=== PATIENT | male | born 1975 | race Caucasian/White ===

== ENCOUNTER 2018-03-13 22:48 | Inpatient (IN) | payer MEDICAID ==
[2018-03-13 23:37] LABS: % EOSINOPHILS 1.3 % (0.0-5.0); % LYMPHOCYTES 27.7 % (20.0-50.0); EOSINOPHILE ABSOLUTE 0.2 Th/cmm (0.1-0.4); HEMATOCRIT 48.2 % (41.0-60); HEMOGLOBIN 16.3 gm/dL (12-16); MEAN CELL VOLUME 84.7 fl (80-99); MEAN CORPUSCULAR HEMOGLOBIN 28.7 pg (26.0-30.0); MEAN CORPUSCULAR HGB CONC 33.9 pg (28.0-36.0); MEAN PLATELET VOLUME 8.7 fl; MONOCYTE ABSOLUTE 1.2 Th/cmm (0.3-1.0); NEUTROPHILE ABSOLUTE 9.2 Th/cmm (1.8-8.0); PLATELET COUNT 300 Th/cmm (150-400); RED BLOOD COUNT 5.69 Mil/cmm (4.30-5.70); RED CELL DISTRIBUTION WIDTH 13.2 % (11.5-20.0); WHITE BLOOD COUNT 14.6 Th/cmm (4.8-10.8)
[2018-03-13 23:48] LABS: INR 0.91 (0.5-1.4); PROTHROMBIN TIME (TEST) 9.5 SECONDS (9.5-11.5)
[2018-03-13 23:52] LABS: ALBUMIN 3.7 gm/dL (4.2-5.5); ALKALINE PHOSPHATASE 195 U/L (34-104); BILIRUBIN,TOTAL 0.4 mg/dL (0.3-1.0); BUN - UREA NITROGEN 12 mg/dL (7-25); CALCIUM SERUM 9.3 mg/dL (8.6-10.3); CARBON DIOXIDE 25.8 mEq/L (21.0-31.0); CHLORIDE 104 mEq/L (98-107); CHOLESTEROL 132 mg/dL (<200); CREATININE - SERUM 0.7 mg/dL (0.7-1.3); CREATININE KINASE 128 U/L (30-223); GFR AFRICAN-AMERICAN > 60.0 ml/min (>90); GFR NON AFRICAN-AMERICAN > 60.0 ml/min; GLUCOSE 148 mg/dL (70-105); HDL -HIGH DENSITY LIPOPROTEIN 51 mg/dL (23-92); POTASSIUM SERUM 3.8 mEq/L (3.5-5.1); SGOT 51 U/L (13-39); SGPT/ALT 93 U/L (7-52); SODIUM SERUM 137 mEq/L (136-145); TOTAL PROTEIN,SERUM 7.3 gm/dL (6.0-8.3); TRIGLYCERIDES 91 mg/dL (<150)
[2018-03-14 00:09] LABS: DDIMER QUANT < 100 ng/mL (100-400)
--- NOTE | 2018-03-14 00:19 | ED Physician Chart ---
ED Chief Complaint/HPI - Patient Information Date Seen:: 03/13/18 Time Seen:: 23:00 Chief Complaint:: Dyspnea History of Present Illness:: onset x 3 days of dyspnea, fever, cough, and congestion; pt denies trauma, H/As , S/T, neck pain, C/P, Abd. Pain, A/N/V/D/C, chills, or urinary s/s Allergies:: Allergies Allergy/AdvReac Type Severity Reaction Status Date / Time No Known Allergies Allergy Verified 03/13/18 23:11 Vitals:: Vital Signs - 8 hr 03/13/18 03/14/18 23:00 00:15 Temp 97.8 F 98 F HR 90 88 RR 18 18 BP 144/90 140/86 O2 Sat % 96 97 Historian:: Patient, Friend Review:: Nurse's Note Reviewed ED Review of Systems - Review of Systems General/Constitutional: Fever, No chills, No weight loss, No weakness, No diaphoresis, No edema, No loss of appetite Skin: No skin lesions, No rash, No bruising Head: No headache, No light-headedness Eyes: No loss of vision, No pain, No diplopia ENT: No earache, Nasal drainage, No sore throat, No tinnitus Neck: No neck pain, No swelling, No thyromegaly, No stiffness, No mass noted Cardio Vascular: No chest pain, No palpitations, No PND, No orthopnea, No edema Pulmonary: SOB, Cough, No sputum, No wheezing GI: No nausea, No vomiting, No diarrhea, No pain, No melena, No hematochezia, No constipation, No hematemesis G/U: No dysuria, No frequency, No hematuria Musculoskeletal: No bone or joint pain, No back pain, No muscle pain Endocrine: No polyuria, No polydipsia Psychiatric: No prior psych history, No depression, No anxiety, No suicidal ideation, No homicidal ideation, No auditory hallucination, No visual hallucination Hematopoietic: No bruising, No lymphadenopathy Allergic/Immuno: No urticaria, No angioedema Neurological: No syncope, No focal symptoms, No weakness, No paresthesia, No headache, No seizure, No dizziness, No confusion, No vertigo ED Past Medical History - Past Medical History Obtainable: Yes Past Medical History: HTN, Dyslipidemia, Other (Hepatitis C) Family History: HTN Social History: Smoker, Alcohol, Illicit Drug Use, Single Surgical History: None Psychiatricy History: None Medication: Reviewed Family Medical History - Family Member Mother History Unknown: Yes ED Physical Exam - Physical Examination General/Constitutional: Awake, Well-developed, well-nourished, Alert, No distress, GCS 15, Non-toxic appearing, Ambulatory Head: Atraumatic Eyes: Lids, conjuctiva normal, PERRL, EOMI Skin: Nl inspection, No rash, No skin lesions, No ecchymosis, Well hydrated, No lymphadenopathy ENMT: External ears, nose nl, TM canals nl, Nasal exam nl, Lips, teeth, gums nl , Oropharynx nl, Tonsils nl Neck: Nontender, Full ROM w/o pain, No JVD, No nuchal rigidity, No bruit, No mass, No stridor Respiratory: Nl effort/Exclusion Other Respiratory comments:: Lungs: + Rales and Rhonchi Cardio Vascular: RRR, No murmur, gallop, rubs, NL S1 S2, Carotid/Femoral/Distal pulses equal bilaterally GI: No tenderness/rebounding/guarding, No organomegaly, No hernia, Normal BS's, Nondistended, No mass/bruits, No McBurney tenderness, Rectum exam nl Other GI comments:: no pulsatile masses : No CVA tenderness Extremities: No tenderness or effusion, Full ROM, normal strength in all extremities, No edema, Normal digits & nails Neuro/Psych: Alert/oriented, DTR's symmetric, Normal sensory exam, Normal motor strength, Judgement/insight normal, Mood normal, Normal gait, No focal deficits Misc: Normal back, No paraspinal tenderness ED Labs/Radiology/EKG Results - Lab Results Results: Laboratory Tests 03/13/18 03/13/18 03/13/18 23:25 23:25 23:25 WBC 14.6 H RBC 5.69 Hgb 16.3 Hct 48.2 MCV 84.7 MCH 28.7 MCHC Differential 33.9 RDW 13.2 Plt Count 300 MPV 8.7 Neutrophils % 63.0 Lymphocytes % 27.7 Monocytes % 8.0 Eosinophils % 1.3 Basophils % 0.0 PT 9.5 INR 0.91 D-Dimer < 100 L Sodium 137 Potassium 3.8 Chloride 104 Carbon Dioxide 25.8 Anion Gap 11.0 BUN 12 Creatinine 0.7 Est GFR ( Amer) > 60.0 Est GFR (Non-Af Amer) > 60.0 BUN/Creatinine Ratio 17.1 Glucose 148 H Calcium 9.3 Total Bilirubin 0.4 AST 51 H ALT 93 H Alkaline Phosphatase 195 H Creatine Kinase 128 Troponin I B-Natriuretic Peptide Total Protein 7.3 Albumin 3.7 L Globulin 3.6 Albumin/Globulin Ratio 1.0 Triglycerides 91 Cholesterol 132 LDL Cholesterol Direct 66 L HDL Cholesterol 51 03/13/18 03/13/18 23:25 23:25 WBC RBC Hgb Hct MCV MCH MCHC Differential RDW Plt Count MPV Neutrophils % Lymphocytes % Monocytes % Eosinophils % Basophils % PT INR D-Dimer Sodium Potassium Chloride Carbon Dioxide Anion Gap BUN Creatinine Est GFR ( Amer) Est GFR (Non-Af Amer) BUN/Creatinine Ratio Glucose Calcium Total Bilirubin AST ALT Alkaline Phosphatase Creatine Kinase Troponin I 0.01 B-Natriuretic Peptide 17.2 Total Protein Albumin Globulin Albumin/Globulin Ratio Triglycerides Cholesterol LDL Cholesterol Direct HDL Cholesterol Comments:: WBC: 14.6; Elevated LFTs - Radiology Results Comments:: CXR: + CHF; + Patchy RML Infiltrate; COPD - EKG Interpretations EKG Time:: 23:26 Rate & Rhythm: 88; NSR Comments:: non-specific st-t changes ED Septic Shock - . Is Septic Shock (SBP<90, OR Lactate>4 mmol\L) present?: No - <6hrs of presentation: Vital Signs: Vital Signs - 8 hr 03/13/18 03/14/18 23:00 00:15 Temp 97.8 F 98 F HR 90 88 RR 18 18 BP 144/90 140/86 O2 Sat % 96 97 ED Reassessment (Disposition) - Reassessment Reassessment Condition:: Improved - Diagnosis Diagnosis:: Dyspnea, Fever, Cough, Congestion; CHF; PNA; COPD; Sepsis - Aftercare/Follow up Instructions Aftercare/Follow-Up Instructions:: Counseled pt regarding lab results/diagnosis & need follow up, Counseled pt & family regarding lab results/diagnosis & need follow up - Patient Disposition Discharge/Transfer:: Acute Care w/in this hosp Accepting Physician:: Dr. Watson Time Called:: 0020 Time Responded:: 00:20 Admitted to:: Telemetry Spoke to:: Dr. Watson Admitting Medical Physician:: Dr. Watson Condition at Disposition:: Stable, Improved
[2018-03-14] MEDS ORDERED: Levofloxacin 500mg/100mL 500 MG/100 ML BAG IV ONE ×2 (00:28→00:33)
[2018-03-14] MEDS ORDERED: Azithromycin 500 MG in Sodium Chloride 0.9% 250 ML IV SCH (00:45)
[2018-03-14] MEDS ORDERED: cefTRIAXone 1 GM in Sodium Chloride 0.9% 50 ML IV SCH (00:45)
[2018-03-14 01:29] LABS: URINE MICROSCOPIC INDICATED? YES; URINE SOURCE MIDSTREAM
[2018-03-14 01:32] LABS: URINE BILIRUBIN NEGATIVE (NEGATIVE); URINE BLOOD NEGATIVE (NEGATIVE); URINE GLUCOSE (UA) NEGATIVE (NEGATIVE); URINE KETONE NEGATIVE (NEGATIVE); URINE LEUKOCYTE ESTERASE NEGATIVE (NEGATIVE); URINE NITRATE NEGATIVE (NEGATIVE); URINE PROTEIN NEGATIVE (NEGATIVE)
[2018-03-14 01:48] LABS: URINE CLARITY CLEAR (CLEAR); URINE COLOR YELLOW
[2018-03-14 01:49] LABS: URINE BACTERIA OCCASIONAL /hpf (NONE SEEN); URINE EPITHELIAL CELLS FEW /lpf (FEW); URINE RBC 0-2 /hpf (0-5); URINE WBC 0-2 /hpf (0-5)
--- NOTE | 2018-03-14 01:59 | Consultation ---
Consult Note - Consult Note Service Date: 03/14/18 Referring Physician: Rajiv Watson Consult Note: PHYSICIAN Consultation Note: Date of Admission: 03/14/18 Purpose of Consultation: Pneumonia Chief Complaint: Patient SHARMAINE ACOSTA was admitted to location Medical[facility] Unit I with PNEUMONIA. History of Present Illness: 42-year-old male with a past medical history obesity, CVA, develops chest congestion and shortness of breath. It was associated with cough. On initial evaluation, he was afebrile and WBC count was 14,000. Patient was diagnosed pneumonia and started on Rocephin and Zithromax. ID consult was called for further antibiotic management. As per the patient's , he catches breath at night and gets apneic Spells. Past Medical History: obesity, CVA. Allergies Allergy/AdvReac Type Severity Reaction Status Date / Time No Known Allergies Allergy Verified 03/13/18 23:11 Vital Signs Temp 98 F 03/14/18 00:15 Pulse 88 03/14/18 00:15 Resp 18 03/14/18 00:15 BP 140/86 03/14/18 00:15 Pulse Ox 97 03/14/18 00:15 Intake & Output 03/13/18 03/13/18 03/14/18 06:59 18:59 06:59 Weight (lbs) 108.862 kg Other: Weight Source Patient stated Laboratory Results - last 24 hr 03/13/18 03/13/18 03/13/18 23:25 23:25 23:25 WBC 14.6 H RBC 5.69 Hgb 16.3 Hct 48.2 MCV 84.7 MCH 28.7 MCHC Differential 33.9 RDW 13.2 Plt Count 300 MPV 8.7 Neutrophils % 63.0 Lymphocytes % 27.7 Monocytes % 8.0 Eosinophils % 1.3 Basophils % 0.0 PT 9.5 INR 0.91 PTT (Actin FS) D-Dimer < 100 L Sodium 137 Potassium 3.8 Chloride 104 Carbon Dioxide 25.8 Anion Gap 11.0 BUN 12 Creatinine 0.7 Est GFR ( Amer) > 60.0 Est GFR (Non-Af Amer) > 60.0 BUN/Creatinine Ratio 17.1 Glucose 148 H Whole Bld Lactic Acid Calcium 9.3 Total Bilirubin 0.4 AST 51 H ALT 93 H Alkaline Phosphatase 195 H Creatine Kinase 128 Troponin I B-Natriuretic Peptide Total Protein 7.3 Albumin 3.7 L Globulin 3.6 Albumin/Globulin Ratio 1.0 Triglycerides 91 Cholesterol 132 LDL Cholesterol Direct 66 L HDL Cholesterol 51 03/13/18 03/13/18 03/14/18 23:25 23:25 00:00 WBC RBC Hgb Hct MCV MCH MCHC Differential RDW Plt Count MPV Neutrophils % Lymphocytes % Monocytes % Eosinophils % Basophils % PT INR PTT (Actin FS) 28.0 D-Dimer Sodium Potassium Chloride Carbon Dioxide Anion Gap BUN Creatinine Est GFR ( Amer) Est GFR (Non-Af Amer) BUN/Creatinine Ratio Glucose Whole Bld Lactic Acid Calcium Total Bilirubin AST ALT Alkaline Phosphatase Creatine Kinase Troponin I 0.01 B-Natriuretic Peptide 17.2 Total Protein Albumin Globulin Albumin/Globulin Ratio Triglycerides Cholesterol LDL Cholesterol Direct HDL Cholesterol 03/14/18 00:00 WBC RBC Hgb Hct MCV MCH MCHC Differential RDW Plt Count MPV Neutrophils % Lymphocytes % Monocytes % Eosinophils % Basophils % PT INR PTT (Actin FS) D-Dimer Sodium Potassium Chloride Carbon Dioxide Anion Gap BUN Creatinine Est GFR ( Amer) Est GFR (Non-Af Amer) BUN/Creatinine Ratio Glucose Whole Bld Lactic Acid 1.66 Calcium Total Bilirubin AST ALT Alkaline Phosphatase Creatine Kinase Troponin I B-Natriuretic Peptide Total Protein Albumin Globulin Albumin/Globulin Ratio Triglycerides Cholesterol LDL Cholesterol Direct HDL Cholesterol Home Medication Medication Instructions Recorded Type NK [No Home Meds] 03/13/18 History Current Medications Generic Name Dose Route Start Last Admin Trade Name Freq PRN Reason Stop Dose Admin Azithromycin 500 mg/ Sodium 250 mls @ 250 mls/hr 03/14/18 00:45 Chloride IV 05/13/18 00:44 Q24HR LYLE Ceftriaxone Sodium 1 gm/ 50 mls @ 100 mls/hr 03/14/18 00:45 Sodium Chloride IV 05/13/18 00:44 Q24HR LYLE Review of Systems: A 12 point ROS was reviewed with the pertinent positive and negatives noted in the HPI. Social History Smoking Status Current every day smoker, denies alcohol or drug use. Family history: Not available. Physical Exam: General: Comfortable, obese, not in acute distress. HEENT: Head: NC NT. Oral cavity: Moist, pink tongue. Eyes: No pallor and icterus. PERRLA. Neck: Supple, with no JVD no use of X his neck muscles nor thyromegaly. Cardio: S1 and S2 within normal limits regular rhythm no murmur or gallop. Respiratory: Vesicular breath sound clear. No crackles no wheezing. Abdominal: Soft, nontender nondistended bowel sounds present. Genital/Urinary:Deferred Extremities: No cyanosis, no clubbing, no edema. Neurological: Alert and awake. Communication. Moves all 4 activities. Assessment: 1. Leukocytosis suspect sepsis. 2. Pneumonia , likely likely community acquired pneumonia versus atypical pneumonia. 3. Sleep apnea. Patient gives history of snoring and apneic episodes. 4. Obesity. Plan: Continue Rocephin and Zithromax. Thank you Dr. Watson for involving me in taking care of this patient. Signed, Abdirizak Li M.D. 148
--- NOTE | 2018-03-14 07:55 | Diagnostic Imaging Report ---
CHEST X-RAY: AP view INDICATION: pain COMPARISON: None FINDINGS: Left basal subsegmental atelectasis versus scarring is noted. There is no focal consolidation or pleural effusions The heart is normal in size. The osseous structures demonstrate no acute abnormalities. IMPRESSION: Left basal subsegmental atelectasis versus scarring. No focal consolidation identified.
--- NOTE | 2018-03-14 12:44 | Infectious Disease Prog Note ---
Infectious Disease Subjective - Review of Systems Service Date: 03/14/18 Subjective: There is no new change, no fever. Infectious Disease Objective - Results Result Diagrams: 03/13/18 23:25 03/13/18 23: Recent Labs: Laboratory Last Values WBC 14.6 Th/cmm (4.8-10.8) H 03/13/18 23:25 RBC 5.69 Mil/cmm (4.30-5.70) 03/13/18 23:25 Hgb 16.3 gm/dL (12-16) 03/13/18 23:25 Hct 48.2 % (41.0-60) 03/13/18 23:25 MCV 84.7 fl (80-99) 03/13/18 23:25 MCH 28.7 pg (26.0-30.0) 03/13/18 23: MCHC Differential 33.9 pg (28.0-36.0) 03/13/18 23: RDW 13.2 % (11.5-20.0) 03/13/18 23:25 Plt Count 300 Th/cmm (150-400) 03/13/18 23:25 MPV 8.7 fl 03/13/18 23:25 Neutrophils % 63.0 % (40.0-80.0) 03/13/18 23:25 Lymphocytes % 27.7 % (20.0-50.0) 03/13/18 23: Monocytes % 8.0 % (2.0-10.0) 03/13/18: Eosinophils % 1.3 % (0.0-5.0) 03/13/18: Basophils % 0.0 % (0.0-2.0) 03/13/18 23:25 PT 9.5 SECONDS (9.5-11.5) 03/13/18 23:25 INR 0.91 (0.5-1.4) 03/13/18 23:25 PTT (Actin FS) 28.0 SECONDS (26.0-38.0) 03/14/18 00:00 D-Dimer < 100 ng/mL (100-400) L 03/13/18 23:25 Sodium 137 mEq/L (136-145) 03/13/18 23:25 Potassium 3.8 mEq/L (3.5-5.1) 03/13/18 23:25 Chloride 104 mEq/L (98-107) 03/13/18 23:25 Carbon Dioxide 25.8 mEq/L (21.0-31.0) 03/13/18 23:25 Anion Gap 11.0 (7.0-16.0) 03/13/18 23:25 BUN 12 mg/dL (7-25) 03/13/18 23:25 Creatinine 0.7 mg/dL (0.7-1.3) 03/13/18 23:25 Est GFR ( Amer) > 60.0 ml/min (>90) 03/13/18 23:25 Est GFR (Non-Af Amer) > 60.0 ml/min 03/13/18 23:25 BUN/Creatinine Ratio 17.1 03/13/18 23:25 Glucose 148 mg/dL (70-105) H 03/13/18 23:25 Whole Bld Lactic Acid 1.66 mmol/L (0.60-1.99) 03/14/18 00:00 Calcium 9.3 mg/dL (8.6-10.3) 03/13/18 23:25 Total Bilirubin 0.4 mg/dL (0.3-1.0) 03/13/18 23:25 AST 51 U/L (13-39) H 03/13/18 23:25 ALT 93 U/L (7-52) H 03/13/18 23:25 Alkaline Phosphatase 195 U/L (34-104) H 03/13/18 23:25 Creatine Kinase 128 U/L (30-223) 03/13/18 23:25 Troponin I 0.01 ng/mL (0.01-0.05) 03/13/18 23:25 B-Natriuretic Peptide 17.2 pg/mL (5.0-100.0) 03/13/18 23:25 Total Protein 7.3 gm/dL (6.0-8.3) 03/13/18 23:25 Albumin 3.7 gm/dL (4.2-5.5) L 03/13/18 23:25 Globulin 3.6 gm/dL 03/13/18 23:25 Albumin/Globulin Ratio 1.0 (1.0-1.8) 03/13/18 23:25 Triglycerides 91 mg/dL (<150) 03/13/18 23:25 Cholesterol 132 mg/dL (<200) 03/13/18 23:25 LDL Cholesterol Direct 66 mg/dL (75-193) L 03/13/18 23:25 HDL Cholesterol 51 mg/dL (23-92) 03/13/18 23:25 Urine Source MIDSTREAM 03/14/18 01:03 Urine Color YELLOW 03/14/18 01:03 Urine Clarity CLEAR (CLEAR) 03/14/18 01:03 Urine pH 6.0 (4.6 - 8.0) 03/14/18 01:03 Ur Specific [place] >= 1.030 (1.005-1.030) 03/14/18 01:03 Urine Protein NEGATIVE mg/dL (NEGATIVE) 03/14/18 01:03 Urine Glucose (UA) NEGATIVE mg/dL (NEGATIVE) 03/14/18 01:03 Urine Ketones NEGATIVE mg/dL (NEGATIVE) 03/14/18 01:03 Urine Blood NEGATIVE (NEGATIVE) 03/14/18 01:03 Urine Nitrate NEGATIVE (NEGATIVE) 03/14/18 01:03 Urine Bilirubin NEGATIVE (NEGATIVE) 03/14/18 01:03 Urine Urobilinogen 1.0 E.U./dL (0.2 - 1.0) 03/14/18 01:03 Ur Leukocyte Esterase NEGATIVE (NEGATIVE) 03/14/18 01:03 Urine RBC 0-2 /hpf (0-5) H 03/14/18 01:03 Urine WBC 0-2 /hpf (0-5) 03/14/18 01:03 Ur Epithelial Cells FEW /lpf (FEW) 03/14/18 01:03 Urine Bacteria OCCASIONAL /hpf (NONE SEEN) 03/14/18 01:03 - Physical Exam Vitals and I&O: Vital Signs Temp 97.1 F 03/14/18 12:03 Pulse 69 03/14/18 12:03 Resp 18 03/14/18 12:03 BP 130/70 03/14/18 12:03 Pulse Ox 97 03/14/18 12:03 Intake & Output 03/13/18 03/14/18 03/14/18 18:59 06:59 18:59 Intake Total 250 480 Balance 250 480 Weight (lbs) 108.862 kg 109.769 kg Intake: Intake, IV Amount 50 cefTRIAXone 1 gm In 50 Sodium Chloride 0.9% 50 ml @ 100 mls/hr IV Q24HR [facility] Rx#:[id number] Oral 200 480 Other: # Voids 2 # Bowel Movements 0 Weight Source Bedscale Bedscale Active Medications: Current Medications Azithromycin 500 mg/ Sodium (Chloride) 250 mls @ 250 mls/hr IV Q24HR [facility] Stop: 05/13/18 00:44 Last Admin: 03/14/18 02:49 Dose: 250 mls/hr Ceftriaxone Sodium 1 gm/ (Sodium Chloride) 50 mls @ 100 mls/hr IV Q24HR [facility] Stop: 05/13/18 00:44 Last Infusion: 03/14/18 02:50 Dose: Infused General: no acute distress, well developed, well nourished HEENT: atraumatic, normocephalic, PERRLA, EOMI Neck: supple, no thyromegaly Cardiovascular: S1S2, regular Lungs: clear to auscultation bilaterally, clear to percussion Abdomen: soft, no tender, no distended, no mass Extremities: no cyanosis, no clubbing, no edema Neurological: awake, alert, oriented Skin: intact Infectious Disease Assmt/Plan - Assessment Assessment: Assessment: 1. Leukocytosis suspect sepsis. 2. Pneumonia , likely likely community acquired pneumonia versus atypical pneumonia. 3. Sleep apnea. Patient gives history of snoring and apneic episodes. 4. Obesity. Plan: Continue Rocephin and Zithromax - Plan Plan: Continue ceftriaxone and zithromax. Clinically patient has sleep apnea, and he m ust get the Sleep study as outpatient basis. Patient and his significant other is aware of this fact.
[2018-03-14 13:07] LABS: % BASOPHILS 1.1 % (0.0-2.0); % EOSINOPHILS 1.6 % (0.0-5.0); % LYMPHOCYTES 29.4 % (20.0-50.0); % NEUTROPHILS 59.9 % (40.0-80.0); BASOPHILE ABSOLUTE 0.1 Th/cumm (0-0.2); EOSINOPHILE ABSOLUTE 0.2 Th/cmm (0.1-0.4); HEMATOCRIT 48.3 % (41.0-60); HEMOGLOBIN 16.1 gm/dL (12-16); LYMPHOCYTE ABSOLUTE 3.5 Th/cmm (1.5-3.0); MEAN CELL VOLUME 86.4 fl (80-99); MEAN CORPUSCULAR HEMOGLOBIN 28.8 pg (26.0-30.0); MEAN CORPUSCULAR HGB CONC 33.4 pg (28.0-36.0); MEAN PLATELET VOLUME 8.3 fl; MONOCYTE ABSOLUTE 0.9 Th/cmm (0.3-1.0); NEUTROPHILE ABSOLUTE 7.1 Th/cmm (1.8-8.0); PLATELET COUNT 303 Th/cmm (150-400); RED BLOOD COUNT 5.59 Mil/cmm (4.30-5.70); RED CELL DISTRIBUTION WIDTH 13.4 % (11.5-20.0); WHITE BLOOD COUNT 11.8 Th/cmm (4.8-10.8)
[2018-03-14] MEDS ORDERED: Albuterol Nebulizer 2.5mg/3mL HHN SCH (15:47)
--- NOTE | 2018-03-14 16:53 | History & Physical ---
ADMIT DATE: 03/14/2018 HISTORY OF PRESENT ILLNESS: This is a patient admitted for cough and shortness of breath and chest congestion, so the patient's diagnosis is pneumonia. The patient is a 42-year-old male patient with history of severe obesity, history of CVA, history of , chest congestion, shortness of breath and cough, was admitted. The patient was given Rocephin and Zithromax. PAST MEDICAL HISTORY: Obesity, CVA. LABORATORY DATA: The patient's white count was 14.6. PHYSICAL EXAMINATION: HEAD: Normal. ENT: Normal. NECK: Supple, nontender. LUNGS: Bilateral rhonchi, rales. CARDIOVASCULAR SYSTEM: S1, S2 heard. ABDOMEN: Soft. Bowel sounds are heard. DIAGNOSES: Leukocytosis, sepsis, pneumonia, sleep apnea, obesity. PLAN: We will continue antibiotic. We will have ID consult as well as a pulmonary consult for pulmonary insufficiency and I will follow the patient. [facility]# [id number]
--- NOTE | 2018-03-15 01:29 | Consultation ---
DATE OF CONSULTATION: 03/14/2018 PATIENT OF: Dr. Watson. Thank you Dr. Watson for this consultation. HISTORY OF PRESENT ILLNESS: This is a 42-year-old male who presented with some chest congestion, some gasping for air at nighttime. The patient is a smoker, states less than a pack a day for 30 years. Also upon further questioning, he mentioned some snoring and was concerned about sleep apnea, ____ this doctor to see for further evaluation. The patient is feeling better and wants to go home. Denies any shortness of breath. SOCIAL HISTORY: Included in the HPI. PHYSICAL EXAMINATION: GENERAL: Awake, alert, not in acute distress. VITAL SIGNS: Temperature is 97.1, pulse 69, respirations 18, blood pressure 130/70, saturation 97% on room air. HEENT: Atraumatic and normocephalic. Pupils are equal to light and accommodation. Ears, nose, and throat normal. NECK: Supple. No JVD. CHEST: There are a few rhonchi. No wheezing. HEART: Regular rate and rhythm. ABDOMEN: Soft. No tenderness. EXTREMITIES: No edema. IMPRESSION: This is a 42-year-old male with: 1. Acute bronchitis. 2. Possible underlying chronic obstructive pulmonary disease. 3. Possible underlying obstructive sleep apnea syndrome. PLAN: The patient is scheduled to go home. We will write in a prescription for albuterol and antibiotics to finish at home and was advised along with his to follow up with pulmonary function test and sleep study as an outpatient and was advised strongly against smoking. Thank you very much for this consultation. I will follow the patient with you. [facility]# [id number]
[2018-03-15] MEDS ORDERED: Albuterol Nebulizer 2.5mg/3mL HHN ONE (09:00)
== END 2018-03-14 16:10 | disposition home or self-care (01) | DRG 720 ==
LOC: ER 22:48 → MSI 03-14 00:30
PROVIDERS: ADMIT Internal Medicine; ATTEND Internal Medicine
DX: A41.9 Sepsis, unspecified organism (principal); J18.9 Pneumonia, unspecified organism; I11.0 Hypertensive heart disease with heart failure; I50.9 Heart failure, unspecified; B19.20 Unspecified viral hepatitis C without hepatic coma; E78.00 Pure hypercholesterolemia, unspecified; F17.210 Nicotine dependence, cigarettes, uncomplicated; J44.0 Chronic obstructive pulmonary disease with (acute) lower respiratory infection; E66.9 Obesity, unspecified; G47.30 Sleep apnea, unspecified; J20.9 Acute bronchitis, unspecified; Z82.49 Family history of ischemic heart disease and other diseases of the circulatory system; Z68.31 Body mass index [BMI] 31.0-31.9, adult; Z86.73 Personal history of transient ischemic attack (TIA), and cerebral infarction without residual deficits
CPT/HCPCS: 36415-UA; 71045-TC; 80053-TC; 80061-TC; 81001-TC; 82550-TC; 83605; 83880-TC; 84484-TC; 85025-TC; 85379-TC; 85610-TC; 85730-TC; 93005; 94640; 94760; 96374; J0456; J0696; J1956; J7613

== ENCOUNTER 2018-04-13 20:20 | Emergency (ER) | payer MEDICAID ==
--- NOTE | 2018-04-13 20:54 | ED Physician Chart ---
ED Chief Complaint/HPI - Patient Information Date Seen:: 04/13/18 Time Seen:: 20:39 Chief Complaint:: CHEST CONGESTION History of Present Illness:: THIS IS A 42 YO MALE IS CONCERNED ABOUT CHEST CONGESTION AND COUGHING OVER THE LAST FEW DAYS. HE WAS HOSPITALIZE HERE LAST MONTH ON THE AND TREATED FOR BRONCHITIS. HE ADMITS TO SMOKING AFTER QUIETING FOR SEVERAL WEEKS. HE DENIES CHEST PAIN AND ABDOMINAL PAIN. Allergies:: Allergies Allergy/AdvReac Type Severity Reaction Status Date / Time No Known Allergies Allergy Verified 04/13/18 20:21 Vitals:: Vital Signs - 8 hr 04/13/18 20:25 Temp 98.1 F HR 95 RR 20 BP 145/91 O2 Sat % 96 Historian:: Patient Review:: Nurse's Note Reviewed, Old Chart Reviewed ED Review of Systems - Review of Systems General/Constitutional: No fever, No chills, No weight loss, No weakness, No diaphoresis, No edema, No loss of appetite Skin: No skin lesions, No rash, No bruising Head: No headache, No light-headedness Eyes: No loss of vision, No pain, No diplopia ENT: No earache, No nasal drainage, No sore throat, No tinnitus Neck: No neck pain, No swelling, No thyromegaly, No stiffness, No mass noted Cardio Vascular: No chest pain, No palpitations, No PND, No orthopnea, No edema Pulmonary: No SOB, Cough, No sputum, No wheezing, Other (CONGESTION) GI: No nausea, No vomiting, No diarrhea, No pain, No melena, No hematochezia, No constipation, No hematemesis G/U: No dysuria, No frequency, No hematuria Musculoskeletal: No bone or joint pain, No back pain, No muscle pain Endocrine: No polyuria, No polydipsia Psychiatric: No prior psych history, No depression, No anxiety, No suicidal ideation Hematopoietic: No bruising, No lymphadenopathy Allergic/Immuno: No urticaria, No angioedema Neurological: No syncope, No focal symptoms, No weakness, No paresthesia, No headache, No seizure, No dizziness, No confusion, No vertigo ED Past Medical History - Past Medical History Obtainable: Yes Past Medical History: Other (BRONCHITIS) Family History: None Social History: Smoker, No Alcohol, No Drug Use, Employed Surgical History: None Psychiatricy History: None Medication: Reviewed Family Medical History - Family Member Mother History Unknown: Yes Ethnicity: Unknown Living Status: Unknown Hx Family Cancer: (UNKNOWN) Hx Family Coronary Artery Disease: (UNKNOWN) Hx Family Congestive Heart Failure: (UNKNOWN) Hx Family Hypertension: (UNKNOWN) Hx Family Stroke: (UNKNOWN) Hx Family Diabetes: (UNKNOWN) Hx Family Seizures: (UNKNOWN) Hx Family Dementia: (UNKNOWN) Hx Family AIDS: (UNKNOWN) Hx Family COPD: (UNKNOWN) Hx Family Hepatitis: (UNKNOWN) Hx Family Psychiatric Problems: (UNKNOWN) Hx Family Tuberculosis: (UNKNOWN) ED Physical Exam - Physical Examination General/Constitutional: Awake, Well-developed, well-nourished, Alert, No distress, GCS 15, Non-toxic appearing, Ambulatory Head: Atraumatic Eyes: Lids, conjuctiva normal, PERRL, EOMI Skin: Nl inspection, No rash, No skin lesions, No ecchymosis, Well hydrated, No lymphadenopathy ENMT: External ears, nose nl, Nasal exam nl, Lips, teeth, gums nl Neck: Nontender, Full ROM w/o pain, No JVD, No nuchal rigidity, No bruit, No mass, No stridor Respiratory: Nl effort/Exclusion, Clear to Auscultation, No Wheeze/Rhonchi/ Rales (BILATERAL RHONCHI HEARD) Cardio Vascular: RRR, No murmur, gallop, rubs, NL S1 S2 GI: No tenderness/rebounding/guarding, No organomegaly, No hernia, Normal BS's, Nondistended, No mass/bruits, No McBurney tenderness : No CVA tenderness Extremities: No tenderness or effusion, Full ROM, normal strength in all extremities, No edema, Normal digits & nails Neuro/Psych: Alert/oriented, DTR's symmetric, Normal sensory exam, Normal motor strength, Judgement/insight normal, Mood normal, Normal gait, No focal deficits Misc: Normal back, No paraspinal tenderness ED Assessment - Assessment General Assessment: BRONCHITIS ED Septic Shock - . Is Septic Shock (SBP<90, OR Lactate>4 mmol\L) present?: No - <6hrs of presentation: Vital Signs: Vital Signs - 8 hr 04/13/18 20:25 Temp 98.1 F HR 95 RR 20 BP 145/91 O2 Sat % 96 ED Reassessment (Disposition) - Reassessment Reassessment Condition:: Improved - Diagnosis Diagnosis:: ACUTE BRONCHITIS - Aftercare/Follow up Instructions Aftercare/Follow-Up Instructions:: Counseled pt regarding lab results/diagnosis & need follow up, Refer to Discharge Instructions, Counseled pt & family regarding lab results/diagnosis & need follow up - Patient Disposition Discharge/Transfer:: Home Condition at Disposition:: Improved
== END 2018-04-13 21:17 | disposition home or self-care (01) ==
LOC: ER 20:20
DX: J20.9 Acute bronchitis, unspecified (principal); F17.200 Nicotine dependence, unspecified, uncomplicated
CPT/HCPCS: 99284; 96372 ×2; J0696; J2930; Z7502

== ENCOUNTER 2018-04-28 22:32 | Emergency (ER) | payer MEDICAID ==
--- NOTE | 2018-04-28 23:20 | ED Physician Chart ---
ED Chief Complaint/HPI - Patient Information Date Seen:: 04/28/18 Time Seen:: 22:40 Chief Complaint:: cough with sputum History of Present Illness:: cough with sputum continues to smoke. Allergies:: Allergies Allergy/AdvReac Type Severity Reaction Status Date / Time No Known Allergies Allergy Verified 04/28/18 22:57 Vitals:: Vital Signs - 8 hr 04/28/18 22:40 Temp 97.9 F HR 91 RR 18 BP 134/85 O2 Sat % 97 Historian:: Patient, Friend Review:: Nurse's Note Reviewed ED Review of Systems - Review of Systems General/Constitutional: No fever, No chills, No weight loss, No weakness, No diaphoresis, No edema, No loss of appetite Skin: No skin lesions, No rash, No bruising Head: No headache, No light-headedness Eyes: No loss of vision, No pain, No diplopia ENT: No earache, No nasal drainage, No sore throat, No tinnitus Neck: No neck pain, No swelling, No thyromegaly, No stiffness, No mass noted Cardio Vascular: No chest pain, No palpitations, No PND, No orthopnea, No edema Pulmonary: Cough, Sputum GI: No nausea, No vomiting, No diarrhea, No pain, No melena, No hematochezia, No constipation, No hematemesis G/U: No dysuria, No frequency, No hematuria Musculoskeletal: No bone or joint pain, No back pain, No muscle pain Endocrine: No polyuria, No polydipsia Psychiatric: No prior psych history, No depression, No anxiety, No suicidal ideation Hematopoietic: No bruising, No lymphadenopathy Allergic/Immuno: No urticaria, No angioedema Neurological: No syncope, No focal symptoms, No weakness, No paresthesia, No headache, No seizure, No dizziness, No confusion, No vertigo Family Medical History - Family Member Mother History Unknown: Yes Ethnicity: Unknown Living Status: Unknown Hx Family Cancer: (UNKNOWN) Hx Family Coronary Artery Disease: (UNKNOWN) Hx Family Congestive Heart Failure: (UNKNOWN) Hx Family Hypertension: (UNKNOWN) Hx Family Stroke: (UNKNOWN) Hx Family Diabetes: (UNKNOWN) Hx Family Seizures: (UNKNOWN) Hx Family Dementia: (UNKNOWN) Hx Family AIDS: (UNKNOWN) Hx Family COPD: (UNKNOWN) Hx Family Hepatitis: (UNKNOWN) Hx Family Psychiatric Problems: (UNKNOWN) Hx Family Tuberculosis: (UNKNOWN) ED Physical Exam - Physical Examination General/Constitutional: Awake, Well-developed, well-nourished, Alert, No distress, GCS 15, Non-toxic appearing, Ambulatory Head: Atraumatic Eyes: Lids, conjuctiva normal, PERRL, EOMI Skin: Nl inspection, No rash, No skin lesions, No ecchymosis, Well hydrated, No lymphadenopathy ENMT: External ears, nose nl, TM canals nl, Nasal exam nl, Lips, teeth, gums nl Other ENMT comments:: poor dentition Neck: Nontender, Full ROM w/o pain, No JVD, No nuchal rigidity, No bruit, No mass, No stridor Respiratory: Nl effort/Exclusion, Clear to Auscultation, No Wheeze/Rhonchi/Rales Cardio Vascular: RRR, No murmur, gallop, rubs, NL S1 S2 Extremities: No tenderness or effusion, Full ROM, normal strength in all extremities, No edema, Normal digits & nails Neuro/Psych: Alert/oriented, Normal sensory exam, Normal motor strength, Judgement/insight normal, Mood normal, Normal gait, No focal deficits Misc: Normal back, No paraspinal tenderness ED Assessment - Assessment General Assessment: resting comfortably after IM injections of Rocephin and Solumedrol. ED Septic Shock - . Is Septic Shock (SBP<90, OR Lactate>4 mmol\L) present?: No - <6hrs of presentation: Vital Signs: Vital Signs - 8 hr 04/28/18 22:40 Temp 97.9 F HR 91 RR 18 BP 134/85 O2 Sat % 97 ED Reassessment (Disposition) - Reassessment Reassessment Condition:: Improved - Diagnosis Diagnosis:: Bronchitis Nicotine addiction. - Aftercare/Follow up Instructions Notes:: please follow up with primary care physician and stop smoking. Medication Prescribed:: doxycycline 100 mg po bid # 20 - Patient Disposition Discharge/Transfer:: Home Condition at Disposition:: Stable, Improved
== END 2018-04-28 23:55 | disposition home or self-care (01) ==
LOC: ER 22:32
DX: J40 Bronchitis, not specified as acute or chronic (principal); F17.200 Nicotine dependence, unspecified, uncomplicated
CPT/HCPCS: 99284; 96372 ×2; J0696; J2930; Z7502

== ENCOUNTER 2018-05-13 15:38 | Emergency (ER) | payer MEDICAID ==
--- NOTE | 2018-05-13 16:29 | ED Physician Chart ---
ED Chief Complaint/HPI - Patient Information Date Seen:: 05/13/18 Time Seen:: 16:24 Chief Complaint:: dental pain History of Present Illness:: dental pain lt upper for one wk pt awaiting dentist at [facility] awaiting extraction and taking tramadol and antibiotics Allergies:: Allergies Allergy/AdvReac Type Severity Reaction Status Date / Time No Known Allergies Allergy Verified 04/28/18 22:57 Vitals:: Vital Signs - 8 hr 05/13/18 16:10 Temp 98.3 F HR 98 RR 21 BP 167/97 O2 Sat % 95 ED Review of Systems - Review of Systems General/Constitutional: No fever Skin: No skin lesions Head: No headache Eyes: No loss of vision ENT: No earache Neck: No neck pain Cardio Vascular: No chest pain Pulmonary: No SOB GI: No vomiting Musculoskeletal: No bone or joint pain Hematopoietic: No bruising Allergic/Immuno: No urticaria Neurological: No focal symptoms Family Medical History - Family Member Mother History Unknown: Yes Ethnicity: Unknown Living Status: Unknown Hx Family Cancer: (UNKNOWN) Hx Family Coronary Artery Disease: (UNKNOWN) Hx Family Congestive Heart Failure: (UNKNOWN) Hx Family Hypertension: (UNKNOWN) Hx Family Stroke: (UNKNOWN) Hx Family Diabetes: (UNKNOWN) Hx Family Seizures: (UNKNOWN) Hx Family Dementia: (UNKNOWN) Hx Family AIDS: (UNKNOWN) Hx Family COPD: (UNKNOWN) Hx Family Hepatitis: (UNKNOWN) Hx Family Psychiatric Problems: (UNKNOWN) Hx Family Tuberculosis: (UNKNOWN) ED Septic Shock - . Is Septic Shock (SBP<90, OR Lactate>4 mmol\L) present?: No - <6hrs of presentation: Vital Signs: Vital Signs - 8 hr 05/13/18 16:10 Temp 98.3 F HR 98 RR 21 BP 167/97 O2 Sat % 95 ED Reassessment (Disposition) - Diagnosis Diagnosis:: tooth pain - Aftercare/Follow up Instructions Aftercare/Follow-Up Instructions:: Counseled pt regarding lab results/diagnosis & need follow up Medication Prescribed:: continue antibiotics - Patient Disposition Discharge/Transfer:: Home Condition at Disposition:: Stable
== END 2018-05-13 16:35 | disposition home or self-care (01) ==
LOC: ER 15:38
DX: K08.89 Other specified disorders of teeth and supporting structures (principal)
CPT/HCPCS: 99283; 96372; J1885; Z7502

== ENCOUNTER 2018-07-27 02:49 | Emergency (ER) | payer MEDICAID ==
[2018-07-27 03:36] LABS: % BASOPHILS 0.3 % (0.0-2.0); % EOSINOPHILS 1.4 % (0.0-5.0); % LYMPHOCYTES 30.1 % (20.0-50.0); % MONOCYTES 10.6 % (2.0-10.0); % NEUTROPHILS 57.6 % (40.0-80.0); EOSINOPHILE ABSOLUTE 0.2 Th/cmm (0.1-0.4); HEMATOCRIT 47.8 % (41.0-60); HEMOGLOBIN 16.5 gm/dL (12-16); LYMPHOCYTE ABSOLUTE 3.9 Th/cmm (1.5-3.0); MEAN CELL VOLUME 87.5 fl (80-99); MEAN CORPUSCULAR HEMOGLOBIN 30.1 pg (26.0-30.0); MEAN CORPUSCULAR HGB CONC 34.4 pg (28.0-36.0); MEAN PLATELET VOLUME 8.2 fl; MONOCYTE ABSOLUTE 1.4 Th/cmm (0.3-1.0); NEUTROPHILE ABSOLUTE 7.4 Th/cmm (1.8-8.0); PLATELET COUNT 259 Th/cmm (150-400); RED BLOOD COUNT 5.46 Mil/cmm (4.30-5.70); RED CELL DISTRIBUTION WIDTH 12.5 % (11.5-20.0); WHITE BLOOD COUNT 12.9 Th/cmm (4.8-10.8)
[2018-07-27 03:49] LABS: ALB/GLOB RATIO 1.2 (1.0-1.8); ALBUMIN 3.8 gm/dL (4.2-5.5); ALKALINE PHOSPHATASE 169 U/L (34-104); AMYLASE SERUM 27 U/L (29-103); ANION GAP 11.6 (7.0-16.0); BILIRUBIN,TOTAL 0.5 mg/dL (0.3-1.0); BUN - UREA NITROGEN 17 mg/dL (7-25); CALCIUM SERUM 9.3 mg/dL (8.6-10.3); CARBON DIOXIDE 25.2 mEq/L (21.0-31.0); CHLORIDE 105 mEq/L (98-107); CREATININE - SERUM 0.7 mg/dL (0.7-1.3); GFR AFRICAN-AMERICAN > 60.0 ml/min (>90); GFR NON AFRICAN-AMERICAN > 60.0 ml/min; GLUCOSE 119 mg/dL (70-105); LIPASE 28 U/L (11-82); POTASSIUM SERUM 3.8 mEq/L (3.5-5.1); SGPT/ALT 210 U/L (7-52); SODIUM SERUM 138 mEq/L (136-145); TOTAL PROTEIN,SERUM 7.1 gm/dL (6.0-8.3)
[2018-07-27 04:14] LABS: URINE SOURCE CLEAN C
[2018-07-27 04:16] LABS: URINE BILIRUBIN NEGATIVE (NEGATIVE); URINE BLOOD NEGATIVE (NEGATIVE); URINE GLUCOSE (UA) NEGATIVE (NEGATIVE); URINE KETONE NEGATIVE (NEGATIVE); URINE LEUKOCYTE ESTERASE NEGATIVE (NEGATIVE); URINE NITRATE NEGATIVE (NEGATIVE); URINE PROTEIN NEGATIVE (NEGATIVE)
--- NOTE | 2018-07-27 04:18 | ED Physician Chart ---
ED Chief Complaint/HPI - Patient Information Date Seen:: 07/27/18 Time Seen:: 02:55 Chief Complaint:: RUQ pain History of Present Illness:: RUQ pain. Had steak at 2 p.m. Started developing RUQ pain at 2:30 a.m. No N, V, D. Allergies:: Allergies Allergy/AdvReac Type Severity Reaction Status Date / Time No Known Allergies Allergy Verified 07/27/18 03:01 Vitals:: Vital Signs - 8 hr 07/27/18 02:55 Temp 98.2 F HR 91 RR 20 BP 129/78 O2 Sat % 97 Historian:: Patient, Family Member Review:: Nurse's Note Reviewed ED Review of Systems - Review of Systems General/Constitutional: No fever, No chills, No weight loss, No weakness, No diaphoresis, No edema, No loss of appetite Skin: No skin lesions, No rash, No bruising Head: No headache, No light-headedness Eyes: No loss of vision, No pain, No diplopia ENT: No earache, No nasal drainage, No sore throat, No tinnitus Neck: No neck pain, No swelling, No thyromegaly, No stiffness, No mass noted Cardio Vascular: No chest pain, No palpitations, No PND, No orthopnea, No edema Pulmonary: No SOB, No cough, No sputum, No wheezing GI: No nausea, No vomiting, No diarrhea, Pain, No melena, No hematochezia, No constipation, No hematemesis G/U: No dysuria, No frequency, No hematuria Musculoskeletal: Bone or joint pain Endocrine: No polyuria, No polydipsia Psychiatric: No prior psych history, No depression, No anxiety, No suicidal ideation Hematopoietic: No bruising, No lymphadenopathy Allergic/Immuno: No urticaria, No angioedema Neurological: No syncope, No focal symptoms, No weakness, No paresthesia, No headache, No seizure, No dizziness, No confusion, No vertigo ED Past Medical History - Past Medical History Obtainable: Yes Past Medical History: Other (obstructive sleep apnea; hepatitis C; elevated liver function tests.) Family Medical History - Family Member Mother History Unknown: Yes Ethnicity: Unknown Living Status: Unknown Hx Family Cancer: (UNKNOWN) Hx Family Coronary Artery Disease: (UNKNOWN) Hx Family Congestive Heart Failure: (UNKNOWN) Hx Family Hypertension: (UNKNOWN) Hx Family Stroke: (UNKNOWN) Hx Family Diabetes: (UNKNOWN) Hx Family Seizures: (UNKNOWN) Hx Family Dementia: (UNKNOWN) Hx Family AIDS: (UNKNOWN) Hx Family COPD: (UNKNOWN) Hx Family Hepatitis: (UNKNOWN) Hx Family Psychiatric Problems: (UNKNOWN) Hx Family Tuberculosis: (UNKNOWN) ED Physical Exam - Physical Examination General/Constitutional: Awake, Alert, No distress, GCS 15, Non-toxic appearing, Ambulatory Other Gen/Cons comments:: morbidly obese Head: Atraumatic Eyes: Lids, conjuctiva normal, PERRL, EOMI Skin: Nl inspection, No rash, No skin lesions, No ecchymosis, Well hydrated, No lymphadenopathy ENMT: External ears, nose nl Neck: Nontender, No nuchal rigidity, No stridor Respiratory: Nl effort/Exclusion, Clear to Auscultation, No Wheeze/Rhonchi/Rales Cardio Vascular: RRR, No murmur, gallop, rubs, NL S1 S2 GI: No organomegaly, No hernia, Normal BS's, Nondistended, No mass/bruits, No McBurney tenderness Other GI comments:: minimal to non-existent RUQ. NO PERITONEAL SIGNS. : No CVA tenderness Extremities: Normal digits & nails Other Extremities comments:: right medial epicondyle tenderness with slight swelling. no s/s of infection no s/s of gout. no s/s of bursitis. Neuro/Psych: Alert/oriented, Normal sensory exam, Normal motor strength, Judgement/insight normal, Mood normal, Normal gait, No focal deficits Misc: Normal back, No paraspinal tenderness ED Labs/Radiology/EKG Results - Lab Results Results: Laboratory Tests 07/27/18 07/27/18 03:30 03:30 WBC 12.9 H RBC 5.46 Hgb 16.5 Hct 47.8 MCV 87.5 MCH 30.1 H MCHC Differential 34.4 RDW 12.5 Plt Count 259 MPV 8.2 Neutrophils % 57.6 Lymphocytes % 30.1 Monocytes % 10.6 H Eosinophils % 1.4 Basophils % 0.3 Sodium 138 Potassium 3.8 Chloride 105 Carbon Dioxide 25.2 Anion Gap 11.6 BUN 17 Creatinine 0.7 Est GFR ( Amer) > 60.0 Est GFR (Non-Af Amer) > 60.0 BUN/Creatinine Ratio 24.3 Glucose 119 H Calcium 9.3 Total Bilirubin 0.5 ALT 210 H Alkaline Phosphatase 169 H Total Protein 7.1 Albumin 3.8 L Globulin 3.3 Albumin/Globulin Ratio 1.2 Amylase 27 L Lipase 28 ED Septic Shock - . Is Septic Shock (SBP<90, OR Lactate>4 mmol\L) present?: No - <6hrs of presentation: Vital Signs: Vital Signs - 8 hr 07/27/ 02:55 Temp 98.2 F HR 91 RR 20 BP 129/78 O2 Sat % 97 ED Reassessment (Disposition) - Reassessment Reassessment Condition:: Improved - Diagnosis Diagnosis:: Dehydration RUQ pain without s/s of peritoneal signs or cholecystitis. Right medial epicondyle pain - Aftercare/Follow up Instructions Aftercare/Follow-Up Instructions:: Refer to Discharge Instructions Notes:: keep appointment with specialist TO FOLLOW UP WITH SPECIALIST THAT HE ALREADY HAS AN APPOINTMENT WITH. NO STEAK OR ANY MEAT. NO DAIRY PRODUCTS. NO SPICY FOODS. NO GREASY, FATTY OR FRIED FOODS. Medication Prescribed:: Cipro 500 mg po bid # 20 Flagyl 500 mg po bid # 20 - Patient Disposition Discharge/Transfer:: Home Condition at Disposition:: Stable, Improved
[2018-07-27 04:19] LABS: SGOT 94 U/L (13-39)
[2018-07-27 04:47] LABS: URINE CLARITY CLEAR (CLEAR); URINE COLOR YELLOW; URINE MICROSCOPIC INDICATED? YES
[2018-07-27 04:48] LABS: URINE BACTERIA OCCASIONAL /hpf (NONE SEEN); URINE EPITHELIAL CELLS NONE SEEN /lpf (FEW); URINE RBC NONE SEEN /hpf (0-5)
== END 2018-07-27 05:00 | disposition home or self-care (01) ==
LOC: ER 02:49
DX: E86.0 Dehydration (principal); M25.521 Pain in right elbow; R10.11 Right upper quadrant pain; M25.421 Effusion, right elbow
CPT/HCPCS: 99283; 96372; 36415; 85025; 81001; 82150; 83690; 80053; J1885; Z7502; Z7610

== ENCOUNTER 2018-07-28 01:39 | Emergency (ER) | payer MEDICAID ==
--- NOTE | 2018-07-28 02:12 | ED Physician Chart ---
ED Chief Complaint/HPI - Patient Information Date Seen:: 07/28/18 Time Seen:: 02:00 Chief Complaint:: RIGHT ELBOW PAIN History of Present Illness:: THIS IS A 43 YO MALE WHO IS CONCERNED ABOUT THE SUDDEN ONSET OF RIGHT ELBOW PAIN AND UNABLE TO SLEEP. THE PATIENT DENIES ANY RECENT OR OLD TRAUMA. HE DENIES HAVING GOUT. Allergies:: Allergies Allergy/AdvReac Type Severity Reaction Status Date / Time No Known Allergies Allergy Verified 07/27/18 03:01 Vitals:: Vital Signs - 8 hr 07/28/18 01:40 Temp 98.9 F HR 101 RR 17 BP 130/72 O2 Sat % 95 Historian:: Patient Review:: Nurse's Note Reviewed, Old Chart Reviewed ED Review of Systems - Review of Systems General/Constitutional: No fever, No chills, No weight loss, No weakness, No diaphoresis, No edema, No loss of appetite Skin: No skin lesions, No rash, No bruising Head: No headache, No light-headedness Eyes: No loss of vision, No pain, No diplopia ENT: No earache, No nasal drainage, No sore throat, No tinnitus Neck: No neck pain, No swelling, No thyromegaly, No stiffness, No mass noted Cardio Vascular: No chest pain, No palpitations, No PND, No orthopnea, No edema Pulmonary: No SOB, No cough, No sputum, No wheezing GI: No nausea, No vomiting, No diarrhea, No pain, No melena, No hematochezia, No constipation, No hematemesis G/U: No dysuria, No frequency, No hematuria Musculoskeletal: Bone or joint pain (RIGHT ELBOW PAIN), No bone or joint pain, No back pain, No muscle pain Endocrine: No polyuria, No polydipsia Psychiatric: No prior psych history, No depression, No anxiety, No suicidal ideation Hematopoietic: No bruising, No lymphadenopathy Allergic/Immuno: No urticaria, No angioedema Neurological: No syncope, No focal symptoms, No weakness, No paresthesia, No headache, No seizure, No dizziness, No confusion, No vertigo ED Past Medical History - Past Medical History Obtainable: Yes Past Medical History: CVA/TIA, Arthritis, Other (HEP C) Family History: None Social History: Smoker, No Alcohol, No Drug Use, Single Surgical History: None Family Medical History - Family Member Mother History Unknown: Yes Ethnicity: Unknown Living Status: Unknown Hx Family Cancer: (UNKNOWN) Hx Family Coronary Artery Disease: (UNKNOWN) Hx Family Congestive Heart Failure: (UNKNOWN) Hx Family Hypertension: (UNKNOWN) Hx Family Stroke: (UNKNOWN) Hx Family Diabetes: (UNKNOWN) Hx Family Seizures: (UNKNOWN) Hx Family Dementia: (UNKNOWN) Hx Family AIDS: (UNKNOWN) Hx Family COPD: (UNKNOWN) Hx Family Hepatitis: (UNKNOWN) Hx Family Psychiatric Problems: (UNKNOWN) Hx Family Tuberculosis: (UNKNOWN) ED Physical Exam - Physical Examination General/Constitutional: Awake, Well-developed, well-nourished, Alert, No distress, GCS 15, Non-toxic appearing, Ambulatory Head: Atraumatic Eyes: Lids, conjuctiva normal, PERRL, EOMI Skin: Nl inspection, No rash, No skin lesions, No ecchymosis, Well hydrated, No lymphadenopathy ENMT: External ears, nose nl, Nasal exam nl, Lips, teeth, gums nl Neck: Nontender, Full ROM w/o pain, No JVD, No nuchal rigidity, No bruit, No mass, No stridor Respiratory: Nl effort/Exclusion, Clear to Auscultation, No Wheeze/Rhonchi/Rales Cardio Vascular: RRR, No murmur, gallop, rubs, NL S1 S2 GI: No tenderness/rebounding/guarding, No organomegaly, No hernia, Normal BS's, Nondistended, No mass/bruits, No McBurney tenderness : No CVA tenderness Extremities: No tenderness or effusion, Full ROM, normal strength in all extremities, No edema, Normal digits & nails Other Extremities comments:: RIGHT ELBOW SLIGHT SWOLLEN AND RED WITH NORMAL ROM Neuro/Psych: Alert/oriented, DTR's symmetric, Normal sensory exam, Normal motor strength, Judgement/insight normal, Mood normal, Normal gait, No focal deficits Misc: Normal back, No paraspinal tenderness ED Assessment - Assessment General Assessment: RIGHT ELBOW PAIN ED Septic Shock - . Is Septic Shock (SBP<90, OR Lactate>4 mmol\L) present?: No - <6hrs of presentation: Vital Signs: Vital Signs - 8 hr 07/28/18 01:40 Temp 98.9 F HR 101 RR 17 BP 130/72 O2 Sat % 95 ED Reassessment (Disposition) - Reassessment Reassessment Condition:: Improved - Diagnosis Diagnosis:: RIGHT ELBOW CELLULITIS - Aftercare/Follow up Instructions Aftercare/Follow-Up Instructions:: Counseled pt regarding lab results/diagnosis & need follow up, Refer to Discharge Instructions, Counseled pt & family regarding lab results/diagnosis & need follow up - Patient Disposition Discharge/Transfer:: Home Condition at Disposition:: Improved
[2018-07-28 02:23] LABS: URINE SOURCE CLEAN C
[2018-07-28 02:25] LABS: % BASOPHILS 0.3 % (0.0-2.0); % EOSINOPHILS 0.8 % (0.0-5.0); % LYMPHOCYTES 25.6 % (20.0-50.0); % MONOCYTES 5.7 % (2.0-10.0); % NEUTROPHILS 67.6 % (40.0-80.0); EOSINOPHILE ABSOLUTE 0.1 Th/cmm (0.1-0.4); HEMATOCRIT 47.1 % (41.0-60); HEMOGLOBIN 16.1 gm/dL (12-16); LYMPHOCYTE ABSOLUTE 3.4 Th/cmm (1.5-3.0); MEAN CELL VOLUME 87.1 fl (80-99); MEAN CORPUSCULAR HEMOGLOBIN 29.8 pg (26.0-30.0); MEAN CORPUSCULAR HGB CONC 34.2 pg (28.0-36.0); MEAN PLATELET VOLUME 8.4 fl; MONOCYTE ABSOLUTE 0.8 Th/cmm (0.3-1.0); NEUTROPHILE ABSOLUTE 9.1 Th/cmm (1.8-8.0); PLATELET COUNT 264 Th/cmm (150-400); RED BLOOD COUNT 5.41 Mil/cmm (4.30-5.70); RED CELL DISTRIBUTION WIDTH 12.6 % (11.5-20.0); WHITE BLOOD COUNT 13.4 Th/cmm (4.8-10.8)
[2018-07-28 02:27] LABS: URINE BILIRUBIN NEGATIVE (NEGATIVE); URINE BLOOD NEGATIVE (NEGATIVE); URINE GLUCOSE (UA) NEGATIVE (NEGATIVE); URINE KETONE NEGATIVE (NEGATIVE); URINE LEUKOCYTE ESTERASE NEGATIVE (NEGATIVE); URINE NITRATE NEGATIVE (NEGATIVE); URINE PH 5.5 (4.6 - 8.0); URINE PROTEIN NEGATIVE (NEGATIVE)
[2018-07-28 02:42] LABS: URINE CLARITY CLEAR (CLEAR); URINE COLOR YELLOW
[2018-07-28 02:43] LABS: ALB/GLOB RATIO 1.1 (1.0-1.8); ALBUMIN 3.7 gm/dL (4.2-5.5); ALKALINE PHOSPHATASE 164 U/L (34-104); ANION GAP 12.1 (7.0-16.0); BILIRUBIN,TOTAL 0.5 mg/dL (0.3-1.0); BUN - UREA NITROGEN 18 mg/dL (7-25); CALCIUM SERUM 9.3 mg/dL (8.6-10.3); CARBON DIOXIDE 25.8 mEq/L (21.0-31.0); CHLORIDE 105 mEq/L (98-107); GFR AFRICAN-AMERICAN > 60.0 ml/min (>90); GFR NON AFRICAN-AMERICAN > 60.0 ml/min; GLUCOSE 129 mg/dL (70-105); POTASSIUM SERUM 3.9 mEq/L (3.5-5.1); SGOT 97 U/L (13-39); SGPT/ALT 206 U/L (7-52); SODIUM SERUM 139 mEq/L (136-145); URINE BACTERIA OCCASIONAL /hpf (NONE SEEN); URINE EPITHELIAL CELLS NONE SEEN /lpf (FEW); URINE MICROSCOPIC INDICATED? YES; URINE RBC NONE SEEN /hpf (0-5); URINE WBC 0-2 /hpf (0-5)
[2018-07-28 02:58] LABS: AMPHETAMINE URINE NEGATIVE (NEGATIVE); BARBITURATES URINE NEGATIVE (NEGATIVE); BENZODIAZEPINES QUAL URINE NEGATIVE (NEGATIVE); CANNABINOID THC NEGATIVE (NEGATIVE); COCAINE METABOLITE QUAL URINE NEGATIVE (NEGATIVE); METHADONE URINE NEGATIVE (NEGATIVE); METHAMPHETAMINES QUAL URINE NEGATIVE (NEGATIVE); OPIATES (MORPHINE) QUAL. URINE NEGATIVE (NEGATIVE); PHENCYCLIDINE (PCP) URINE NEGATIVE (NEGATIVE); TRICYCLICS (TCA) QUAL. URINE NEGATIVE (NEGATIVE)
== END 2018-07-28 03:15 | disposition home or self-care (01) ==
LOC: ER 01:39
DX: L03.113 Cellulitis of right upper limb (principal); M19.90 Unspecified osteoarthritis, unspecified site; F17.200 Nicotine dependence, unspecified, uncomplicated; Z86.73 Personal history of transient ischemic attack (TIA), and cerebral infarction without residual deficits
CPT/HCPCS: 99283; 96372 ×2; 36415; 80307; 85025; 80053; 84550; 81001; J1885; J0696; Z7502

== ENCOUNTER 2018-09-26 01:19 | Emergency (ER) | payer MEDICAID ==
--- NOTE | 2018-09-26 01:35 | ED Physician Chart ---
ED Chief Complaint/HPI - Patient Information Date Seen:: 09/26/18 Time Seen:: 01:20 Chief Complaint:: Bilateral Knee Pain History of Present Illness:: onset x 3 days of intermittent, dull, MS type bilateral knee pain, L>R; pt denies trauma, LOC, ALOC, AMS, H/As, S/T, neck pain, cough, C/P, SOB, Abd. Pain , A/N/V/D/C, fever, chills, or urinary s/s; pt admits to old knee injuries; pt' s last tetanus shot: < 5 years; UTD Allergies:: Allergies Allergy/AdvReac Type Severity Reaction Status Date / Time No Known Allergies Allergy Verified 07/27/18 03:01 Historian:: Patient Review:: Nurse's Note Reviewed, Old Chart Reviewed ED Review of Systems - Review of Systems General/Constitutional: No fever, No chills, No weight loss, No weakness, No diaphoresis, No edema, No loss of appetite Skin: No skin lesions, No rash, No bruising Head: No headache, No light-headedness Eyes: No loss of vision, No pain, No diplopia ENT: No earache, No nasal drainage, No sore throat, No tinnitus Neck: No neck pain, No swelling, No thyromegaly, No stiffness, No mass noted Cardio Vascular: No chest pain, No palpitations, No PND, No orthopnea, No edema Pulmonary: No SOB, Cough, No sputum, No wheezing GI: No nausea, No vomiting, No diarrhea, No pain, No melena, No hematochezia, No constipation, No hematemesis G/U: No dysuria, No frequency, No hematuria, No nacturia Musculoskeletal: Bone or joint pain, No back pain, Muscle pain Endocrine: No polyuria, No polydipsia Psychiatric: No prior psych history, No depression, No anxiety, No suicidal ideation, No homicidal ideation, No auditory hallucination, No visual hallucination Hematopoietic: No bruising, No lymphadenopathy Allergic/Immuno: No urticaria, No angioedema Neurological: No syncope, No focal symptoms, No weakness, No paresthesia, No headache, No seizure, No dizziness, No confusion, No vertigo ED Past Medical History - Past Medical History Obtainable: Yes Past Medical History: HTN, Asthma/COPD Family History: HTN Social History: Non Smoker, No Alcohol, No Drug Use, Single Surgical History: None Psychiatricy History: None Medication: Reviewed Family Medical History - Family Member Mother History Unknown: Yes Ethnicity: Unknown Living Status: Unknown Hx Family Cancer: (UNKNOWN) Hx Family Coronary Artery Disease: (UNKNOWN) Hx Family Congestive Heart Failure: (UNKNOWN) Hx Family Hypertension: (UNKNOWN) Hx Family Stroke: (UNKNOWN) Hx Family Diabetes: (UNKNOWN) Hx Family Seizures: (UNKNOWN) Hx Family Dementia: (UNKNOWN) Hx Family AIDS: (UNKNOWN) Hx Family COPD: (UNKNOWN) Hx Family Hepatitis: (UNKNOWN) Hx Family Psychiatric Problems: (UNKNOWN) Hx Family Tuberculosis: (UNKNOWN) ED Physical Exam - Physical Examination General/Constitutional: Awake, Well-developed, well-nourished, Alert, No distress, GCS 15, Non-toxic appearing, Ambulatory Head: Atraumatic Eyes: Lids, conjuctiva normal, PERRL, EOMI Skin: Nl inspection, No rash, No skin lesions, No ecchymosis, Well hydrated, No lymphadenopathy Other Skin comments:: + mild bilateral knee cellulitis; no FBs; no septic joints; good NV functions ENMT: External ears, nose nl, TM canals nl, Nasal exam nl, Lips, teeth, gums nl , Oropharynx nl, Tonsils nl Neck: Nontender, Full ROM w/o pain, No JVD, No nuchal rigidity, No bruit, No mass, No stridor Other Neck comments:: supple; no meningeal signs; no cervical tenderness; no bruits Respiratory: Nl effort/Exclusion, Clear to Auscultation, No Wheeze/Rhonchi/Rales Cardio Vascular: RRR, No murmur, gallop, rubs, NL S1 S2, Carotid/Femoral/Distal pulses equal bilaterally GI: No tenderness/rebounding/guarding, No organomegaly, No hernia, Normal BS's, Nondistended, No mass/bruits, No McBurney tenderness, Rectum exam nl Other GI comments:: no pulsatile masses : No CVA tenderness Extremities: No tenderness or effusion, Full ROM, normal strength in all extremities, No edema, Normal digits & nails Other Extremities comments:: + Bilateral Knee swelling, erythema, and tenderness upon all PROMs; + mild cellulitis of both Knees; no septic joints; no FBs; no loss of ROMs; full active ROMs; no ligament instability; DTRs: 2+ bilaterally; Gait: WNL; good motor, tendon, and sensory functions; good NV functions Neuro/Psych: Alert/oriented, DTR's symmetric, Normal sensory exam, Normal motor strength, Judgement/insight normal, Mood normal, Normal gait, No focal deficits Other Neuro/Psych comments:: no focal signs Misc: Normal back, No paraspinal tenderness ED Labs/Radiology/EKG Results - Lab Results Comments:: deferred by pt - Radiology Results Comments:: U/S: no DVT; NAD; X-Rays: deferred by pt ED Assessment - Procedures Informed Consent: Procedure/risk/benefits explained by MD: Yes Splint Care: Splint applied Post Procedure/Splint Exam: No Active Bleeding, Full Range of Motion, Neuro/ Vascular Exam Comments:: Knee Immobilizers to both Knees; Crutches ED Septic Shock - . Is Septic Shock (SBP<90, OR Lactate>4 mmol\L) present?: No ED Reassessment (Disposition) - Reassessment Reassessment:: pt is asymptomatic upon discharge Reassessment Condition:: Improved - Diagnosis Diagnosis:: Bilateral Knee Pain; Old Knee Injuries; Myositis; Knee Sprains and Strains; Knee Cellulitis; Hypertension; - Aftercare/Follow up Instructions Aftercare/Follow-Up Instructions:: Counseled pt regarding lab results/diagnosis & need follow up, Refer to Discharge Instructions, Counseled pt & family regarding lab results/diagnosis & need follow up Medication Prescribed:: Rx: Keflex 500mg po qid x 10 days; Neosporin Ointment bid x 14 days; Motrin 400mg po tid prn pain/swelling; Warm Compresses/Heating Pads to affected areas; Skin Care/Knee Care Instructions - Patient Disposition Discharge/Transfer:: Home Condition at Disposition:: Stable, Improved (U/S Care/Imaging Care Instructions ; RTER prn if existing s/s reoccur and/or get worse and/or any other new s/s occur; ACIs given for all above Dx; Refer to Orthopedist/Slat Basket Top Maker/ Health Unit Clerk/Semiautomatic Taper Operator [email or web address]; F/U with PMD in one day or prn; RTER prn if concerned)
--- NOTE | 2018-09-26 10:35 | Diagnostic Imaging Report ---
Left lower extremity Doppler venous ultrasound exam HISTORY: Pain/swelling Sonographic sector images were obtained through the deep venous systems of the left leg. Associated Doppler data was obtained. The exam demonstrates patency of the common femoral, superficial femoral, popliteal, and posterior tibial veins. Specifically, no thrombus is seen. There are normal compressibility and augmentation responses. IMPRESSION: Negative exam for deep vein thrombophlebitis.
== END 2018-09-26 03:48 | disposition home or self-care (01) ==
LOC: ER 01:19
DX: S83.91XA Sprain of unspecified site of right knee, initial encounter (principal); S86.911A Strain of unspecified muscle(s) and tendon(s) at lower leg level, right leg, initial encounter; S83.92XA Sprain of unspecified site of left knee, initial encounter; S86.912A Strain of unspecified muscle(s) and tendon(s) at lower leg level, left leg, initial encounter; L03.116 Cellulitis of left lower limb; L03.115 Cellulitis of right lower limb; M60.9 Myositis, unspecified; I10 Essential (primary) hypertension; J44.9 Chronic obstructive pulmonary disease, unspecified; X58.XXXA Exposure to other specified factors, initial encounter; Y93.89 Activity, other specified; Y92.89 Other specified places as the place of occurrence of the external cause; Y99.8 Other external cause status
CPT/HCPCS: 93971-TC-LT; Z7502

== ENCOUNTER 2019-01-18 18:46 | Emergency (ER) | payer MEDICAID ==
--- NOTE | 2019-01-18 19:43 | ED Physician Chart ---
ED Chief Complaint/HPI - Patient Information Date Seen:: 01/18/19 Time Seen:: 19:17 Chief Complaint:: right axillary abscess History of Present Illness:: this is a 43 yo male who states that for about a week he has had drainage from an abscess in the right arm pit. the patient denies having any other treatment at another hospital. he denies having any fever, nausea and vomiting. Allergies:: Allergies Allergy/AdvReac Type Severity Reaction Status Date / Time No Known Allergies Allergy Verified 01/18/19 19:24 Vitals:: Vital Signs - 8 hr 01/18/19 19:10 Temp 98.1 F HR 87 RR 18 BP 111/82 O2 Sat % 96 Historian:: Patient Review:: Nurse's Note Reviewed, Old Chart Reviewed ED Review of Systems - Review of Systems General/Constitutional: No fever, No chills, No weight loss, No weakness, No diaphoresis, No edema, No loss of appetite Skin: No skin lesions, No rash, No bruising Head: No headache, No light-headedness Eyes: No loss of vision, No pain, No diplopia ENT: No earache, No nasal drainage, No sore throat, No tinnitus Neck: No neck pain, No swelling, No thyromegaly, No stiffness, No mass noted Cardio Vascular: No chest pain, No palpitations, No PND, No orthopnea, No edema Pulmonary: No SOB, No cough, No sputum, No wheezing GI: No nausea, No vomiting, No diarrhea, No pain, No melena, No hematochezia, No constipation, No hematemesis G/U: No dysuria, No frequency, No hematuria Musculoskeletal: No bone or joint pain, No back pain, No muscle pain, Other ( right axillary abscess ) Endocrine: No polyuria, No polydipsia Psychiatric: No prior psych history, No depression, No anxiety, No suicidal ideation Hematopoietic: No bruising, No lymphadenopathy Allergic/Immuno: No urticaria, No angioedema Neurological: No syncope, No focal symptoms, No weakness, No paresthesia, No headache, No seizure, No dizziness, No confusion, No vertigo ED Past Medical History - Past Medical History Obtainable: Yes Past Medical History: HTN, Other (obesity, hep c, sleep apnea) Family History: None Social History: Non Smoker, No Alcohol, No Drug Use, , Employed Family Medical History - Family Member Mother History Unknown: Yes Ethnicity: Unknown Living Status: Unknown Hx Family Cancer: (UNKNOWN) Hx Family Coronary Artery Disease: (UNKNOWN) Hx Family Congestive Heart Failure: (UNKNOWN) Hx Family Hypertension: (UNKNOWN) Hx Family Stroke: (UNKNOWN) Hx Family Diabetes: (UNKNOWN) Hx Family Seizures: (UNKNOWN) Hx Family Dementia: (UNKNOWN) Hx Family AIDS: (UNKNOWN) Hx Family COPD: (UNKNOWN) Hx Family Hepatitis: (UNKNOWN) Hx Family Psychiatric Problems: (UNKNOWN) Hx Family Tuberculosis: (UNKNOWN) ED Physical Exam - Physical Examination Other Extremities comments:: right axilla abscess that has a hole draining with swelling around the area. ED Assessment - Assessment General Assessment: resolving abscess of the left axilla ED Septic Shock - . Is Septic Shock (SBP<90, OR Lactate>4 mmol\L) present?: No - <6hrs of presentation: Vital Signs: Vital Signs - 8 hr // 19:10 Temp 98.1 F HR 87 RR 18 BP 111/82 O2 Sat % 96 ED Reassessment (Disposition) - Reassessment Reassessment Condition:: Improved - Diagnosis Diagnosis:: abscess of the right axilla - Aftercare/Follow up Instructions Aftercare/Follow-Up Instructions:: Counseled pt regarding lab results/diagnosis & need follow up, Refer to Discharge Instructions, Counseled pt & family regarding lab results/diagnosis & need follow up Medication Prescribed:: z-david - Patient Disposition Discharge/Transfer:: Home Condition at Disposition:: Improved
== END 2019-01-18 20:15 | disposition home or self-care (01) ==
LOC: ER 18:46
DX: L02.411 Cutaneous abscess of right axilla (principal); I10 Essential (primary) hypertension
CPT/HCPCS: 99283; 96372; 87075; 87205; 87070; 90715; J0696; Z7502

== ENCOUNTER 2019-02-12 14:17 | Emergency (ER) | payer MEDICAID ==
--- NOTE | 2019-02-12 14:52 | ED Physician Chart ---
ED Chief Complaint/HPI - Patient Information Date Seen:: 02/12/19 Time Seen:: 14:46 Chief Complaint:: Chest pain History of Present Illness:: 43 yo male with history of sleep apnea, hypertension, hepatitis C and morbid obesity, had chest pain for 1 week and half, worsened for 2 days. Pt went to [facility] ER and the work up showed afib. 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 Today, pt's chest pain continued. He had SOB on exertion. Allergies:: Allergies Allergy/AdvReac Type Severity Reaction Status Date / Time No Known Allergies Allergy Verified 01/18/19 19:24 Vitals:: Vital Signs - 8 hr 02/12/19 14:31 Temp 98.8 F HR 90 RR 16 BP 137/92 O2 Sat % 95 ED Review of Systems - Review of Systems General/Constitutional: No fever Skin: Skin lesions Head: Headache Eyes: No pain ENT: No earache Neck: No neck pain Cardio Vascular: Chest pain Pulmonary: SOB GI: No nausea, No vomiting Musculoskeletal: Muscle pain Neurological: No focal symptoms ED Past Medical History - Past Medical History Past Medical History: HTN, Other (Sleep apnea, hypertension) Social History: Non Smoker (Former smoker), No Alcohol, No Drug Use Surgical History: None Family Medical History - Family Member Mother History Unknown: Yes Ethnicity: Unknown Living Status: Unknown Hx Family Cancer: (UNKNOWN) Hx Family Coronary Artery Disease: (UNKNOWN) Hx Family Congestive Heart Failure: (UNKNOWN) Hx Family Hypertension: (UNKNOWN) Hx Family Stroke: (UNKNOWN) Hx Family Diabetes: (UNKNOWN) Hx Family Seizures: (UNKNOWN) Hx Family Dementia: (UNKNOWN) Hx Family AIDS: (UNKNOWN) Hx Family COPD: (UNKNOWN) Hx Family Hepatitis: (UNKNOWN) Hx Family Psychiatric Problems: (UNKNOWN) Hx Family Tuberculosis: (UNKNOWN) ED Physical Exam - Physical Examination General/Constitutional: Awake, Alert Head: Atraumatic Eyes: PERRL, EOMI Other Skin comments:: Right forearm skin infection with 4 cm erythema and a central abscess ENMT: Nasal exam nl Neck: No nuchal rigidity Other Respiratory comments:: Expirational wheeze Cardio Vascular: RRR, No murmur, gallop, rubs, NL S1 S2 GI: No tenderness/rebounding/guarding Extremities: normal strength in all extremities Neuro/Psych: Alert/oriented ED Labs/Radiology/EKG Results - Lab Results Results: Laboratory Last Values WBC 14.9 Th/cmm (4.8-10.8) H 02/12/19 15:00 RBC 4.95 Mil/cmm (4.30-5.70) 02/12/19 15:00 Hgb 14.7 gm/dL (12-16) 02/12/19 15:00 Hct 43.8 % (41.0-60) 02/12/19 15:00 MCV 88.5 fl (80-99) 02/12/19 15:00 MCH 29.7 pg (26.0-30.0) 02/12/19 15:00 MCHC Differential 33.6 pg (28.0-36.0) 02/12/19 15:00 RDW 12.5 % (11.5-20.0) 02/12/19 15:00 Plt Count 307 Th/cmm (150-400) 02/12/19 15:00 MPV 8.9 fl 02/12/19 15:00 Neutrophils % 63.3 % (40.0-80.0) 02/12/19 15:00 Lymphocytes % 26.3 % (20.0-50.0) 02/12/19 15:00 Monocytes % 6.7 % (2.0-10.0) 02/12/19 15:00 Eosinophils % 1.0 % (0.0-5.0) 02/12/19 15:00 Basophils % 2.7 % (0.0-2.0) H 02/12/19 15:00 PT 11.4 SECONDS (9.5-11.5) 02/12/19 15:00 INR 1.11 (0.5-1.4) 02/12/19 15:00 PTT (Actin FS) 35.2 SECONDS (26.0-38.0) 02/12/19 15:00 Sodium 137 mEq/L (136-145) 02/12/19 15:00 Potassium 3.8 mEq/L (3.5-5.1) 02/12/19 15:00 Chloride 102 mEq/L (98-107) 02/12/19 15:00 Carbon Dioxide 25.7 mEq/L (21.0-31.0) 02/12/19 15:00 Anion Gap 13.1 (7.0-16.0) 02/12/19 15:00 BUN 12 mg/dL (7-25) 02/12/19 15:00 Creatinine 1.1 mg/dL (0.7-1.3) 02/12/19 15:00 Est GFR ( Amer) > 60.0 ml/min (>90) 02/12/19 15:00 Est GFR (Non-Af Amer) > 60.0 ml/min 02/12/19 15:00 BUN/Creatinine Ratio 10.9 02/12/19 15:00 Glucose 179 mg/dL (70-105) H 02/12/19 15:00 Calcium 9.3 mg/dL (8.6-10.3) 02/12/19 15:00 Total Bilirubin 0.9 mg/dL (0.3-1.0) 02/12/19 15:00 AST 112 U/L (13-39) H 02/12/19 15:00 ALT 204 U/L (7-52) H 02/12/19 15:00 Alkaline Phosphatase 166 U/L (34-104) H 02/12/19 15:00 Creatine Kinase 164 U/L (30-223) 02/12/19 15:00 Troponin I < 0.01 ng/mL (0.01-0.05) L 02/12/19 15:00 B-Natriuretic Peptide 5.7 pg/mL (5.0-100.0) 02/12/19 15:00 Total Protein 7.3 gm/dL (6.0-8.3) 02/12/19 15:00 Albumin 3.9 gm/dL (4.2-5.5) L 02/12/19 15:00 Globulin 3.4 gm/dL 02/12/19 15:00 Albumin/Globulin Ratio 1.2 (1.0-1.8) 02/12/19 15:00 Triglycerides 90 mg/dL (<150) 02/12/19 15:00 Cholesterol 139 mg/dL (<200) 02/12/19 15:00 LDL Cholesterol Direct 72 mg/dL (75-193) L 02/12/19 15:00 HDL Cholesterol 49 mg/dL (23-92) 02/12/19 15:00 TSH 1.02 uIU/ml (0.34-5.60) 02/12/19 15:00 Urine Source CLEAN C 02/12/19 15:18 Urine Color YELLOW 02/12/19 15:18 Urine Clarity CLEAR (CLEAR) 02/12/19 15:18 Urine pH 6.0 (4.6 - 8.0) 02/12/19 15:18 Ur Specific [place] 1.020 (1.005-1.030) 02/12/19 15:18 Urine Protein NEGATIVE mg/dL (NEGATIVE) 02/12/19 15:18 Urine Glucose (UA) NEGATIVE mg/dL (NEGATIVE) 02/12/19 15:18 Urine Ketones NEGATIVE mg/dL (NEGATIVE) 02/12/19 15:18 Urine Blood NEGATIVE (NEGATIVE) 02/12/19 15:18 Urine Nitrate NEGATIVE (NEGATIVE) 02/12/19 15:18 Urine Bilirubin NEGATIVE (NEGATIVE) 02/12/19 15:18 Urine Urobilinogen >=8.0 E.U./dL (0.2 - 1.0) H 02/12/19 15:18 Ur Leukocyte Esterase NEGATIVE (NEGATIVE) 02/12/19 15:18 Urine RBC 0-2 /hpf (0-5) H 02/12/19 15:18 Urine WBC 0-2 /hpf (0-5) 02/12/19 15:18 Ur Epithelial Cells OCCASIONAL /lpf (FEW) 02/12/19 15:18 Urine Bacteria FEW /hpf (NONE SEEN) 02/12/19 15:18 Urine Mucus FEW /lpf (FEW) 02/12/19 15:18 Urine Opiates Screen NEGATIVE (NEGATIVE) 02/12/19 15:18 Urine Methadone Screen NEGATIVE (NEGATIVE) 02/12/19 15:18 Ur Barbiturates Screen NEGATIVE (NEGATIVE) 02/12/19 15:18 Ur Tricyclics Screen NEGATIVE (NEGATIVE) 02/12/19 15:18 Ur Phencyclidine Scrn NEGATIVE (NEGATIVE) 02/12/19 15:18 Amphetamines Screen NEGATIVE (NEGATIVE) 02/12/19 15:18 U Methamphetamines Scrn NEGATIVE (NEGATIVE) 02/12/19 15:18 U Benzodiazepines Scrn NEGATIVE (NEGATIVE) 02/12/19 15:18 U Cocaine Metab Screen NEGATIVE (NEGATIVE) 02/12/19 15:18 U Cannabinoids Screen NEGATIVE (NEGATIVE) 02/12/19 15:18 - Radiology Results Results: CXR: no focal consolidation - EKG Interpretations EKG Time:: 14:40 Rate & Rhythm: 91 bpm, sinus rhythm [place]: Left axis deviation Intervals: Abnormal R wave progression, early transition Comments:: Non specific ST changes ED Assessment - Assessment General Assessment: Chest pain Sleep apnea Hypertension Hepatitis C Morbid obesity Carbuncle Assessment/Comments:: CBC, CMP, BNP, Trop I, UA, urine drug screen EKG, CXR DuoNeb Keflex 500 mg PO - Procedures Procedures:: Attempted aspirating the skin abscess without puss coming out. ED Septic Shock - . Is Septic Shock (SBP<90, OR Lactate>4 mmol\L) present?: No - <6hrs of presentation: Vital Signs: Vital Signs - 8 hr 02/12/19 14:31 Temp 98.8 F HR 90 RR 16 BP 137/92 O2 Sat % 95 ED Reassessment (Disposition) - Reassessment Reassessment Condition:: Improved - Aftercare/Follow up Instructions Medication Prescribed:: Keflex 500mg PO q8h x 10 days - Patient Disposition Discharge/Transfer:: Home
[2019-02-12] MEDS ORDERED: Albuterol/Ipratropium Neb 3 ML AERS HHN ONE ×2 (15:04→15:11)
[2019-02-12 15:22] LABS: URINE SOURCE CLEAN C
[2019-02-12 15:24] LABS: HEMATOCRIT 43.8 % (41.0-60); HEMOGLOBIN 14.7 gm/dL (12-16); MEAN CELL VOLUME 88.5 fl (80-99); MEAN CORPUSCULAR HEMOGLOBIN 29.7 pg (26.0-30.0); MEAN CORPUSCULAR HGB CONC 33.6 pg (28.0-36.0); RED BLOOD COUNT 4.95 Mil/cmm (4.30-5.70); RED CELL DISTRIBUTION WIDTH 12.5 % (11.5-20.0); WHITE BLOOD COUNT 14.9 Th/cmm (4.8-10.8)
[2019-02-12 15:25] LABS: % BASOPHILS 2.7 % (0.0-2.0); % LYMPHOCYTES 26.3 % (20.0-50.0); % MONOCYTES 6.7 % (2.0-10.0); % NEUTROPHILS 63.3 % (40.0-80.0); BASOPHILE ABSOLUTE 0.4 Th/cumm (0-0.2); EOSINOPHILE ABSOLUTE 0.1 Th/cmm (0.1-0.4); LYMPHOCYTE ABSOLUTE 3.9 Th/cmm (1.5-3.0); NEUTROPHILE ABSOLUTE 9.5 Th/cmm (1.8-8.0); PLATELET COUNT 307 Th/cmm (150-400)
[2019-02-12 15:33] LABS: URINE BILIRUBIN NEGATIVE (NEGATIVE); URINE CLARITY CLEAR (CLEAR); URINE COLOR YELLOW; URINE GLUCOSE (UA) NEGATIVE (NEGATIVE); URINE KETONE NEGATIVE (NEGATIVE)
[2019-02-12 15:34] LABS: URINE BLOOD NEGATIVE (NEGATIVE); URINE LEUKOCYTE ESTERASE NEGATIVE (NEGATIVE); URINE MICROSCOPIC INDICATED? YES; URINE NITRATE NEGATIVE (NEGATIVE); URINE PROTEIN NEGATIVE (NEGATIVE); URINE UROBILINOGEN >=8.0 E.U./dL (0.2 - 1.0)
[2019-02-12 15:36] LABS: URINE BACTERIA FEW /hpf (NONE SEEN); URINE EPITHELIAL CELLS OCCASIONAL /lpf (FEW); URINE RBC 0-2 /hpf (0-5); URINE WBC 0-2 /hpf (0-5)
[2019-02-12 15:39] LABS: INR 1.11 (0.5-1.4)
[2019-02-12 15:55] LABS: ANION GAP 13.1 (7.0-16.0); CARBON DIOXIDE 25.7 mEq/L (21.0-31.0); CHLORIDE 102 mEq/L (98-107); CHOLESTEROL 139 mg/dL (<200); HDL -HIGH DENSITY LIPOPROTEIN 49 mg/dL (23-92); POTASSIUM SERUM 3.8 mEq/L (3.5-5.1); SODIUM SERUM 137 mEq/L (136-145); TRIGLYCERIDES 90 mg/dL (<150)
[2019-02-12 15:56] LABS: ALB/GLOB RATIO 1.2 (1.0-1.8); ALBUMIN 3.9 gm/dL (4.2-5.5); ALKALINE PHOSPHATASE 166 U/L (34-104); BILIRUBIN,TOTAL 0.9 mg/dL (0.3-1.0); BUN - UREA NITROGEN 12 mg/dL (7-25); CALCIUM SERUM 9.3 mg/dL (8.6-10.3); CREATININE - SERUM 1.1 mg/dL (0.7-1.3); GFR AFRICAN-AMERICAN > 60.0 ml/min (>90); GFR NON AFRICAN-AMERICAN > 60.0 ml/min; GLUCOSE 179 mg/dL (70-105); SGOT 112 U/L (13-39); SGPT/ALT 204 U/L (7-52); TOTAL PROTEIN,SERUM 7.3 gm/dL (6.0-8.3)
[2019-02-12 15:58] LABS: AMPHETAMINE URINE NEGATIVE (NEGATIVE); BARBITURATES URINE NEGATIVE (NEGATIVE); BENZODIAZEPINES QUAL URINE NEGATIVE (NEGATIVE); CANNABINOID THC NEGATIVE (NEGATIVE); COCAINE METABOLITE QUAL URINE NEGATIVE (NEGATIVE); METHADONE URINE NEGATIVE (NEGATIVE); METHAMPHETAMINES QUAL URINE NEGATIVE (NEGATIVE); OPIATES (MORPHINE) QUAL. URINE NEGATIVE (NEGATIVE); PHENCYCLIDINE (PCP) URINE NEGATIVE (NEGATIVE); TRICYCLICS (TCA) QUAL. URINE NEGATIVE (NEGATIVE)
[2019-02-12 16:23] LABS: CREATININE KINASE 164 U/L (30-223)
--- NOTE | 2019-02-13 09:23 | Diagnostic Imaging Report ---
CHEST X-RAY: AP view INDICATION: Shortness of breath COMPARISON: 20/07/2018 FINDINGS: Suboptimal lung volumes are noted. There is no focal consolidation or pleural effusions . Borderline prominent heart is noted. No evidence of sanjiv CHF. Osseous structures are intact. IMPRESSION: Suboptimal lung volumes with no focal consolidation identified.
== END 2019-02-12 17:00 | disposition home or self-care (01) ==
LOC: ER 14:17
DX: R07.89 Other chest pain (principal); I10 Essential (primary) hypertension; G47.30 Sleep apnea, unspecified; B19.20 Unspecified viral hepatitis C without hepatic coma; E66.01 Morbid (severe) obesity due to excess calories; L02.93 Carbuncle, unspecified
CPT/HCPCS: 36415-UA; 71045-TC; 80053-TC; 80061-TC; 80307; 81001-TC; 82550-TC; 83036-90; 83880-TC; 84443-TC; 84484-TC; 85025-TC; 85610-TC; 93005; 94640; Z7610